=== PATIENT | female | born 1980 | race Caucasian/White ===

== ENCOUNTER 2018-08-05 10:44 | Inpatient (IN) | payer OTHER ==
[~2018-08-05 10:44] MED LIST: DEXAMETHASONE 4 MG/ML 5 ML INJ; LIDOCAINE 2% (SDV) 5 ML INJ; ONDANSETRON 4 MG INJ
[2018-08-05 11:56] LABS: ADD MAN DIFF? NO; BASOPHILS % 0.6 % (0.0-2.0); EOSINOPHILS % 0.8 % (0.0-7.0); HEMATOCRIT 38.1 % (37.0-47.0); HEMOGLOBIN 12.6 g/dl (12.0-16.0); LYMPHOCYTES # 1.3 10^3/ul (0.8-2.9); LYMPHOCYTES % 25.3 % (15.0-51.0); MEAN CORPUSCULAR HEMOGLOBIN 28.4 pg (29.0-33.0); MEAN CORPUSCULAR HGB CONC 33.1 g/dl (32.0-37.0); MEAN PLATELET VOLUME 10.7 fl (7.4-10.4); MONOCYTE # 0.3 10^3/ul (0.3-0.9); MONOCYTES % 5.6 % (0.0-11.0); NEUTROPHIL # 3.5 10^3/ul (1.6-7.5); NEUTROPHILS % 67.1 % (39.0-77.0); PLATELET COUNT 192 10^3/UL (140-415); RED BLOOD COUNT 4.43 10^6/ul (4.20-5.40); RED CELL DISTRIBUTION WIDTH 12.7 % (11.5-14.5)
[2018-08-05 11:56] LABS: WHITE BLOOD COUNT 5.2 10^3/ul (4.8-10.8)
[2018-08-05] MEDS ORDERED: PROPOFOL 100 ML (12:23)
[2018-08-05] MEDS ORDERED: FENTAnyl 50 MCG/ML VIAL (12:26)
[2018-08-05] MEDS ORDERED: EPHEDrine SULFATE 50 MG/5 ML SYG (13:05)
[2018-08-05] MEDS: NALOXONE (0.4 MG/ML) INJ IV (13:08)
[2018-08-05] MEDS ORDERED: NALOXONE (0.4 MG/ML) INJ (13:08)
[2018-08-05] MEDS ORDERED: LABETALOL HCL 20MG INJ IV (13:30)
[2018-08-05] MEDS ORDERED: METOCLOPRAMIDE 10 MG INJ IV (13:30)
[2018-08-05] MEDS ORDERED: OXYCODONE/ACETAMINOPHEN (5/325) TAB PO ×2 (13:30)
[2018-08-05] MEDS ORDERED: MIDAZOLAM 1 MG/ML 2 ML INJ IV (13:30)
[2018-08-05] MEDS ORDERED: DIPHENHYDRAMINE 50 MG INJ IV (13:30)
[2018-08-05] MEDS ORDERED: ONDANSETRON 4 MG INJ IV (13:30)
[2018-08-05] MEDS ORDERED: ALBUTEROL 0.083% (NEB) 2.5 MG/3 ML AMP HHN (13:30)
[2018-08-05] MEDS ORDERED: hydrALAzine 20 MG INJ IV (13:30)
[2018-08-05] MEDS ORDERED: FENTAnyl 50 MCG/ML VIAL IV ×3 (13:30)
[2018-08-05] MEDS: MEPERIDINE 25 MG INJ IV (14:22)
[2018-08-05] MEDS: EPHEDrine SULFATE 50 MG/5 ML SYG IV (14:23)
[2018-08-05] MEDS: KETOROLAC 30 MG INJ IV (14:25)
[2018-08-05] MEDS: MIDAZOLAM 1 MG/ML 2 ML INJ IV (14:37)
[2018-08-05] MEDS ORDERED: LORAZEPAM 2 MG INJ (16:57)
[2018-08-05] MEDS: LORAZEPAM 2 MG INJ IV ×2 (17:05→17:13)
[2018-08-05] MEDS ORDERED: NACL 0.9% 3 ML SYG IV (17:30)
[2018-08-05] MEDS ORDERED: HYDROmorphONE 0.5 MG/0.5 ML SYG IV (17:30)
[2018-08-05 17:48] LABS: ADD MAN DIFF? NO
[2018-08-05 17:51] LABS: WHITE BLOOD COUNT 4.3 10^3/ul (4.8-10.8)
[2018-08-05 17:51] LABS: BASOPHILS % 0.5 % (0.0-2.0); EOSINOPHILS % 0.7 % (0.0-7.0); HEMATOCRIT 33.7 % (37.0-47.0); HEMOGLOBIN 11.2 g/dl (12.0-16.0); LYMPHOCYTES # 1.4 10^3/ul (0.8-2.9); LYMPHOCYTES % 32.2 % (15.0-51.0); MEAN CORPUSCULAR HEMOGLOBIN 28.6 pg (29.0-33.0); MEAN CORPUSCULAR HGB CONC 33.2 g/dl (32.0-37.0); MEAN CORPUSCULAR VOLUME 86.2 fl (82.0-101.0); MEAN PLATELET VOLUME 10.7 fl (7.4-10.4); MONOCYTE # 0.2 10^3/ul (0.3-0.9); MONOCYTES % 4.7 % (0.0-11.0); NEUTROPHIL # 2.6 10^3/ul (1.6-7.5); NEUTROPHILS % 61.7 % (39.0-77.0); PLATELET COUNT 158 10^3/UL (140-415); RED BLOOD COUNT 3.91 10^6/ul (4.20-5.40); RED CELL DISTRIBUTION WIDTH 12.7 % (11.5-14.5)
[2018-08-05 18:19] LABS: ALANINE AMINOTRANSFERASE 64 IU/L (13-69); ALBUMIN 3.3 g/dl (3.3-4.9); ALBUMIN/GLOBULIN RATIO 1.37; ALKALINE PHOSPHATASE 47 IU/L (42-121); ANION GAP 9 (5-13); ASPARTATE AMINO TRANSFERASE 42 IU/L (15-46); BILIRUBIN,INDIRECT 0.3 mg/dl (0-1.1); BILIRUBIN,TOTAL 0.3 mg/dl (0.2-1.3); CALCIUM 8.6 mg/dl (8.4-10.2); CARBON DIOXIDE 27 mmol/L (21-31); CHLORIDE 106 mmol/L (97-110); CREATINE KINASE 80 IU/L (23-200); CREATININE 0.46 mg/dl (0.44-1.00); Estimated GFR > 60 mL/min (>60); GLUCOSE 79 mg/dl (70-220); SODIUM 142 mmol/L (135-144); TOTAL PROTEIN 5.7 g/dl (6.1-8.1)
[2018-08-05 18:22] LABS: BLOOD UREA NITROGEN 6 mg/dl (7-20); POTASSIUM 3.2 mmol/L (3.5-5.1)
[2018-08-05] MEDS ORDERED: POTASSIUM CHLORIDE (SR) 20 MEQ TAB PO (18:37)
[2018-08-05] MEDS: POTASSIUM CHLORIDE (SR) 20 MEQ TAB PO (19:07)
[2018-08-06 07:10] LABS: ADD MAN DIFF? NO
[2018-08-06 07:41] LABS: HEMOGLOBIN A1C 4.9 % (0-5.9)
[2018-08-06 07:43] LABS: ALANINE AMINOTRANSFERASE 74 IU/L (13-69); ALBUMIN 3.5 g/dl (3.3-4.9); ALKALINE PHOSPHATASE 50 IU/L (42-121); ANION GAP 8 (5-13); ASPARTATE AMINO TRANSFERASE 55 IU/L (15-46); BILIRUBIN,INDIRECT 0.5 mg/dl (0-1.1); BILIRUBIN,TOTAL 0.5 mg/dl (0.2-1.3); BLOOD UREA NITROGEN 4 mg/dl (7-20); CALCIUM 8.7 mg/dl (8.4-10.2); CARBON DIOXIDE 28 mmol/L (21-31); CHLORIDE 104 mmol/L (97-110); CREATININE 0.55 mg/dl (0.44-1.00); Estimated GFR > 60 mL/min (>60); GLUCOSE 87 mg/dl (70-220); POTASSIUM 3.9 mmol/L (3.5-5.1); SODIUM 140 mmol/L (135-144)
[2018-08-06 08:14] LABS: BASOPHILS % 0.3 % (0.0-2.0); EOSINOPHILS # 0.1 10^3/ul (0.0-0.5); EOSINOPHILS % 1.5 % (0.0-7.0); HEMOGLOBIN 12.4 g/dl (12.0-16.0); LYMPHOCYTES # 1.5 10^3/ul (0.8-2.9); LYMPHOCYTES % 25.8 % (15.0-51.0); MEAN CORPUSCULAR HGB CONC 33.5 g/dl (32.0-37.0); MEAN CORPUSCULAR VOLUME 86.7 fl (82.0-101.0); MEAN PLATELET VOLUME 10.6 fl (7.4-10.4); MONOCYTE # 0.3 10^3/ul (0.3-0.9); MONOCYTES % 5.6 % (0.0-11.0); NEUTROPHILS % 66.5 % (39.0-77.0); PLATELET COUNT 165 10^3/UL (140-415); RED BLOOD COUNT 4.27 10^6/ul (4.20-5.40); RED CELL DISTRIBUTION WIDTH 12.6 % (11.5-14.5)
[2018-08-06 08:14] LABS: WHITE BLOOD COUNT 5.9 10^3/ul (4.8-10.8)
== END 2018-08-06 15:24 | disposition home or self-care (01) | DRG 745 ==
LOC: SDS 10:44 → REC 17:27 → TEL 20:10
PROVIDERS: Obstetrics & Gynecology
PROC: 0UDB7ZX Extraction of Endometrium, Via Natural or Artificial Opening, Diagnostic (ICD-10-PCS; principal; 2018-08-05 12:27)
DX: N93.9 Abnormal uterine and vaginal bleeding, unspecified (principal); G24.9 Dystonia, unspecified; Z85.850 Personal history of malignant neoplasm of thyroid; E03.9 Hypothyroidism, unspecified
CPT/HCPCS: 70450; 80053; 82550; 82962; 83036; 84443; 85025; 86850; 86900; 86901; 88305